=== PATIENT | female | born 1975 | race Caucasian/White ===

== ENCOUNTER 2022-07-19 13:36 | Emergency (ER) | payer OTHER ==
[~2022-07-19] VITALS: Ht 170.2 cm; Wt 72.6 kg
[2022-07-19 13:38] VITALS: BP_SYST 147
--- NOTE | 2022-07-19 13:40 | NUR ---
Placed in room 7 . Placed on cardiac sonographer, blood pressure machine and pulse oximeter. To gown for exam. Side rails up.
--- NOTE | 2022-07-19 13:45 | NUR ---
PT CAME IN FROM HOME REPORTS FREQUENCY AND BURNING WITH URINATION X 2 MONTHS, 3 DAYS AGO BEGAN TO HAVE FLANK PAIN, SHAKING, SHIVERING AND FEVERS BETWEEN 3-4PM STARTED ON CIPRO BY PCP BUT DOES NOT WANT TO TAKE. PT IS TEARFUL AND ANXIOUS ON ARRIVAL, REPORTS LOTS OF STRESS. ALSO REPORTS BLOOD IN STOOL FOR OVER A YEAR, REPORTS HER PCP IS AWARE. PT IS AMBULATORY, AAOX4, TACHYCARDIC AND HYPERTENSIVE ON ARRIVAL.
[2022-07-19 14:08] LABS: BILIRUBIN,URINE NEGATIVE (NEGATIVE); BLOOD, URINE 2+ (NEGATIVE); COLOR,URINE YELLOW (YELLOW); GLUCOSE,URINE NEGATIVE (NEGATIVE); KETONES,URINE TRACE (NEGATIVE); LEUKOCYTE ESTERASE ,URINE 1+ (NEGATIVE); NITRITE, URINE NEGATIVE (NEGATIVE); PROTEIN URINE 2+ (NEGATIVE)
--- NOTE | 2022-07-19 14:08 | NUR ---
ER DR. TURNER AT THE BEDSIDE EXAMINING PT
[2022-07-19] MEDS ORDERED: NACL 0.9% 1,000 ML IV ONE (14:15)
[2022-07-19] MEDS ORDERED: cefTRIAXone 1 GM IVPB PREMIX 50 ML IV ONE (14:15)
[2022-07-19 14:19] LABS: CLARITY/URINE HAZY (CLEAR)
[2022-07-19 14:20] LABS: HCG,QUAL RESULT NEGATIVE (NEGATIVE)
[2022-07-19 14:22] LABS: BACTERIA,URINE FEW /HPF (None Seen); RBC,URINE 0-3 /HPF (0-3)
[2022-07-19 14:23] LABS: MUCUS,URINE None Seen /LPF (None Seen)
[2022-07-19 14:43] LABS: BASOPHILS # (AUTO) 0.2 K/uL (0.0-0.2); BASOPHILS % (AUTO) 1.9 % (0.0-2.0); EOSINOPHILS % (AUTO) 0.4 % (0.0-4.0); HEMATOCRIT 36.8 % (36-48); HEMOGLOBIN 12.4 g/dL (12.0-16.0); LYMPHOCYTES # (AUTO) 0.4 K/uL (1.0-5.5); LYMPHOCYTES % (AUTO) 4.6 % (20.5-51.5); MEAN CORPUSCULAR HEMOGLOBIN 33 pg (27-31); MEAN CORPUSCULAR HGB CONC 34 % (32-36); MEAN CORPUSCULAR VOLUME 98 fL (79.0-98.0); MONOCYTES # (AUTO) 0.5 K/uL (0.0-1.0); MONOCYTES % (AUTO) 5.2 % (1.7-9.3); NEUTROPHILS # (AUTO) 7.6 K/uL (1.8-7.7); NEUTROPHILS % (AUTO) 87.9 % (40.0-70.0); PLATELET COUNT (AUTO) 136 K/uL (130-430); RED BLOOD CELL COUNT(AUTO) 3.73 MIL/uL (4.2-6.2); RED CELL DISTRIBUTION WIDTH 14.2 % (9.0-15.0); WHITE BLOOD COUNT (AUTO) 8.7 K/uL (4.8-10.8)
[2022-07-19 14:47] LABS: CALCIUM 8.6 mg/dL (8.4-11.0); CREATININE 1.18 mg/dL (0.55-1.30); POTASSIUM 4.4 mmol/L (3.5-5.1)
[2022-07-19 14:53] LABS: ALBUMIN 3.1 g/dL (3.4-4.8); TOTAL BILIRUBIN 0.5 mg/dL (0.0-1.0)
[2022-07-19] MEDS ORDERED: PHEN-726 PO (15:12)
[2022-07-19] MEDS ORDERED: NITR-85 PO (15:12)
[2022-07-19 15:20] VITALS: BP_SYST 124
--- NOTE | 2022-07-19 15:25 | NUR ---
DC INSTRUCTIONS GIVEN AND DISCUSSED BY DR TURNER. REVIEWED RXS. QUESTIONS ANSWERED. VERB UNDERSTANDING. IV REMOVED, CATH INTACT. VSS. AMBULATORY WITH STEADY GAIT AND STABLE FOR DC HOME
== END 2022-07-19 15:26 | disposition home or self-care (01) ==
LOC: SED 13:36
DX: N39.0 Urinary tract infection, site not specified (principal); R30.0 Dysuria; R35.0 Frequency of micturition; R50.9 Fever, unspecified; R11.0 Nausea; Z79.899 Other long term (current) drug therapy
CPT/HCPCS: 99284; 96365; 80053; 81000; 84703; 85025; 87040; 87086; 36415; 83605; J0696